=== PATIENT | female | born 1965 | race African-American/Black ===

== ENCOUNTER 2023-08-18 05:59 | Emergency (ER) | payer OTHER, SELFPAY ==
--- NOTE | 2023-08-18 | ECG_ITS ---
Test Reason : DIZZY Blood Pressure : / mmHG Vent. Rate : 050 BPM Atrial Rate : 050 BPM P-R Int : 182 ms QRS Dur : 092 ms QT Int : 444 ms P-R-T Axes : 073 045 031 degrees QTc Int : 404 ms Sinus bradycardia with sinus arrhythmia Minimal voltage criteria for LVH, may be normal variant ( Sokolow-Moreno ) Borderline ECG No previous ECGs available Referred By: Generic ED Physician Electronically Signed By:Tyshawn Mauricio
--- NOTE | ~2023-08-18 | CT_ITS ---
EXAMINATION: CT HEAD WITHOUT CONTRAST CLINICAL INFORMATION: Headache for 3 hours. Recent reports told patient she had a intracranial aneurysm. COMPARISON: None available. TECHNIQUE: Contiguous axial imaging was performed from the skull base to vertex without intravenous administration of contrast. This CT examination was performed using dose optimization techniques as appropriate, variously including the following: *Automated exposure control *Adjustment of mA and/or kV according to patient size (this includes techniques or standardized protocols for targeted exams where dose is matched to indication/reason for exam; i.e. extremities or head) *Use of iterative reconstruction technique DLP: 688 mGy-cm FINDINGS: There is no acute intra-axial, extra-axial bleed, masses, collection or midline shift. There is no acute infarction evolution. There is no edema. The lateral ventricles are symmetrical in size and configuration without enlargement. Bone windows reveal no calvarial abnormality. There is no scalp soft tissue abnormality. Bilateral paranasal sinuses and mastoid air cells are well-aerated. CT/CT head/brain wo IV con IMPRESSION: No acute intracranial process seen.
[2023-08-18 06:08] VITALS: BP 152/84; PULSE 58; O2SAT 98; BMI 29.0
[2023-08-18 06:13] VITALS: BP 171/69; PULSE 58; RESP 18; TEMP 36.7; O2SAT 97
[2023-08-18 06:37] LABS: MANUAL DIFF FLAG NO
--- NOTE | 2023-08-18 06:38 | PC.NURSE ---
sweat shirt in the pod
[2023-08-18 06:44] LABS: Partial Thromboplastin Time 30.2 SEC (26.0-36.4)
[2023-08-18 06:48] LABS: Basophils Percent Auto 0.5 % (0-2); Eosinophils Absolute Auto 0.1 X10*3/uL (0.0-0.4); Eosinophils Percent Auto 1.6 % (0-4); Hematocrit 37.1 % (37.0-47.0); Hemoglobin 11.7 g/dl (12.0-16.0); Imm Gran Abs Auto 0.04 X10*3/uL (0.00-0.03); Imm Gran Pct Auto 0.5 % (0.0-0.4); Lymphocytes Absolute Auto 2.8 X10*3/uL (1.2-4.9); Lymphocytes Percent Auto 35.9 % (20-40); Mean Corpuscular HGB Conc 31.5 g/dl (31.0-35.0); Mean Corpuscular Hemoglobin 25.5 pg (27.0-33.0); Mean Platelet Volume 9.7 fL (9.4-12.3); Monocytes Absolute Auto 0.8 X10*3/uL (0.1-1.2); Monocytes Percent Auto 10.2 % (2-11); Neutrophils Percent Auto 51.3 % (45-73); Platelet Count 330 X10*3/uL (160-400); Red Blood Count 4.58 X10*6/uL (4.20-5.50); Red Cell Distribution Width 14.7 % (11.0-16.0); White Blood Count 7.7 X10*3/uL (4.8-10.8)
[2023-08-18 06:53] LABS: Alanine Aminotransferase 103 U/L (0-31); Albumin Level 3.6 g/dL (3.5-5.0); Alkaline Phosphatase 79 U/L (39-117); Anion Gap 12 (12-20); Aspartate Amino Transferase 51 U/L (5-31); Bilirubin Total 0.2 mg/dL (0.0-1.0); Blood Urea Nitrogen 25 mg/dL (9-16); Calcium 9.1 mg/dL (8.4-10.2); Carbon Dioxide 25 mmol/L (22-29); Chloride 108 mmol/L (96-108); Creatinine Clr Calc Pharmacy 80.5; Estimated Glomerular Filt Rate > 60; Glucose Random 88 mg/dL (60-115); Potassium 4.4 mmol/L (3.3-5.1); Sodium 141 mmol/L (135-145); Total Protein 6.7 g/dL (6.5-8.0)
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
[2023-08-18 07:02] LABS: Troponin-I High Sensitivity < 2.7 ng/L (<3.5-17.0)
[2023-08-18 07:16] VITALS: BP 144/85; PULSE 54; RESP 13; TEMP 36.6; O2SAT 13
[2023-08-18] MEDS: Metoclopramide HCl 10 MG/2 ML VIAL IVPUSH (07:28)
[2023-08-18] MEDS: Ketorolac Tromethamine 15 MG/ML VIAL 10 MG IVPUSH (07:28)
[2023-08-18] MEDS: 0.9 % Sodium Chloride 1,000 ML 999 ML IV (07:31)
--- NOTE | 2023-08-18 07:32 | PC.NURSE ---
returned from CT, medicated per nov. 1:1 from facility remains for safety
--- NOTE | 2023-08-18 08:35 | PC.NURSE ---
Facility staff arranging transportation back to facility
--- NOTE | 2023-08-18 10:37 | PC.NURSE ---
transport booked for patient to return to [facility] , 1:1 at bedside from facility
== END 2023-08-18 12:11 ==
PROVIDERS: Emergency Provider Emergency Medicine; PCP Pediatrics
DX: R51.9 Headache, unspecified (principal)
CPT/HCPCS: 36415; 70450; 80053; 84484; 85025; 85730; 93005; 96361; 96374; 96375; 99284; 99285; J1885; J2765

== ENCOUNTER → 2023-08-18 06:35 | Outpatient (BNV) | payer OTHER, SELFPAY | PROVIDERS: Emergency Provider Emergency Medicine; PCP Pediatrics; Visit Provider Internal Medicine Cardiovascular Disease | DX: R00.1 Bradycardia, unspecified (principal) | CPT/HCPCS: 93010 ==